=== PATIENT | female | born 1990 | race Caucasian/White ===

== ENCOUNTER 2016-06-21 08:35 | Outpatient (CLI) | payer BC ==
[~2016-06-21] VITALS: Ht 160 cm; Wt 56.4 kg
[~2016-06-21 08:35] MED LIST: CELEXA40 MG PO; NORCO 325 MG-51 TAB PO; PERCOCET 325 MG1 TA2 PO; SPRINTEC 35 MCG1 TAB PO
[2016-06-21 09:09] VITALS: BP 110/54; PULSE 75; TEMP 98.5
[2016-06-21] MEDS ORDERED: ZOLOFT 100MG100 MG PO (09:24)
[2016-06-21] MEDS ORDERED: PRENATAL PO (09:25)
[2016-06-21] MEDS ORDERED: FERROUS SULFATE65 MG PO (09:26)
[2016-06-21 09:47] VITALS: BP 103/58; PULSE 75
== END 2016-06-21 10:00 | disposition home or self-care (01) ==
LOC: LDRO 08:35
DX: O26.893 Other specified pregnancy related conditions, third trimester (principal); R11.0 Nausea; R10.84 Generalized abdominal pain; Z3A.36 36 weeks gestation of pregnancy

== ENCOUNTER 2016-07-07 05:02 | Inpatient (IN) | payer BC ==
[~2016-07-07] VITALS: Ht 160 cm; Wt 58.6 kg
[2016-07-07] VITALS (20 sets, daily range): BP systolic 103–130; BP diastolic 53–88; PULSE 62–118; TEMP 97.5–98.1
[~2016-07-07 05:02] MED LIST changes: +FERROUS SULFATE65 MG PO; +PRENATAL PO; +ZOLOFT 100MG100 MG PO
[2016-07-07] MEDS ORDERED: TYLENOL 500MG500 MG PO (05:35)
[2016-07-07] MEDS ORDERED: OMEGA-3 1000 MG1 CAP PO (05:36)
[2016-07-07 05:46] LABS: BASO % 0.3 % (0.0-2.0); EOS # 0.1 (0.0-0.7); EOS % 0.9 % (0-4.0); GRAN # 8.8 (1.4-6.5); GRAN % 74.3 % (42.2-75.2); HEMATOCRIT 38.2 % (37.0-47.0); MEAN CELL VOLUME 89 fl (80.0-100.0); MEAN CORPUSCULAR HEMOGLOBIN 30 pg (27.0-31.0); MEAN CORPUSCULAR HGB CONC 34 g/dl (33.0-37.0); MEAN PLATELET VOLUME 11.7 fl (7.4-10.4); MONO # 0.8 (0.1-0.6); MONO % 6.8 % (1.7-9.3); PLATELET COUNT 163 K/mm3 (130-400); REDCELL DISTRIBUTION WIDTH-CV 12.6 % (11.5-14.5); WHITE BLOOD COUNT 11.8 K/mm3 (4.8-10.8)
[2016-07-08 02:30] VITALS: BP 103/68; PULSE 91; TEMP 97.8
[2016-07-08 07:33] LABS: HEMOGLOBIN 12.2 g/dl (12.5-16.0)
[2016-07-08 07:43] VITALS: BP 103/57; PULSE 96; TEMP 97.7
[2016-07-08 08:07] LABS: HEMATOCRIT 36.2 % (37.0-47.0)
[2016-07-08 15:33] VITALS: BP 112/59; PULSE 85; TEMP 99.9
[2016-07-08 20:45] VITALS: BP 115/50; PULSE 91; TEMP 98
[2016-07-09] MEDS ORDERED: IBU600 MG PO (08:11)
[2016-07-09] MEDS ORDERED: PERCOCET 325 MG1 TA2 PO (08:11)
[2016-07-09 08:19] VITALS: BP 105/68; PULSE 99; TEMP 97.9
== END 2016-07-09 12:20 | disposition home or self-care (01) | DRG 775 ==
LOC: LDRO 05:02 → LDR 05:24 → OB 11:25
PROVIDERS: Obstetrics & Gynecology
PROC: 10E0XZZ Delivery of Products of Conception, External Approach (ICD-10-PCS; principal; 2016-07-07)
PROC: 0KQM0ZZ Repair Perineum Muscle, Open Approach (ICD-10-PCS; 2016-07-07)
DX: O99.824 Streptococcus B carrier state complicating childbirth (principal); O70.1 Second degree perineal laceration during delivery; O99.344 Other mental disorders complicating childbirth; F32.9 Major depressive disorder, single episode, unspecified; Z3A.39 39 weeks gestation of pregnancy; Z37.0 Single live birth
CPT/HCPCS: J2540; J2590; J2795; J7120

== ENCOUNTER 2018-01-16 11:33 | Emergency (ER) | payer BC ==
[~2018-01-16] VITALS: Ht 1602.7 cm; Wt 42.7 kg
[~2018-01-16 11:33] MED LIST changes: +IBU600 MG PO; +OMEGA-3 1000 MG1 CAP PO; +TYLENOL 500MG500 MG PO
[2018-01-16 11:37] VITALS: TEMP 98.7
[2018-01-16 12:30] VITALS: BP 95/51
[2018-01-16 13:00] LABS: COLLECTION METHOD CLEAN CATCH
[2018-01-16 13:17] LABS: MUCOUS Present /lpf; PH 7 (5-8); URINE APPEARANCE Clear; URINE BACTERIA Rare /hpf; URINE BILIRUBIN Negative (NEGATIVE); URINE BLOOD Negative (NEGATIVE); URINE COLOR Yellow; URINE GLUCOSE Negative (NEGATIVE); URINE KETONE 1+ (NEGATIVE); URINE LEUKOCYTE ESTERASE Trace (NEGATIVE); URINE NITRATE Negative (NEGATIVE); URINE PROTEIN(semi-quant) Negative (NEGATIVE); URINE UROBILINOGEN Negative (NEGATIVE)
[2018-01-16 14:30] VITALS: PULSE 65
== END 2018-01-16 14:30 | disposition home or self-care (01) ==
LOC: COL.ER 11:33
PROVIDERS: Emergency Medicine
DX: O21.9 Vomiting of pregnancy, unspecified (principal); Z3A.10 10 weeks gestation of pregnancy
CPT/HCPCS: J2405; J7030

== ENCOUNTER 2018-08-09 17:55 | Inpatient (IN) | payer MEDICAID ==
[~2018-08-09] VITALS: Ht 160 cm; Wt 56.8 kg
[2018-08-09] VITALS (17 sets, daily range): BP systolic 101–151; BP diastolic 52–74; PULSE 70–108; TEMP 98–98.1
[~2018-08-09 17:55] MED LIST changes: +CEPHALEXIN500 M1 PO; +PHENERGAN 25 TA25 MG PO; +PHENERGAN25 MG RC
--- NOTE | 2018-08-09 18:00 | NUR ---
Pt arrives on unit ambulatory with spouse. States regular contractions that increased at 1500. Bloody show noted. Reports GFM. Denies LOF. Changed into clean gown. EFM and toco applied. VSS. SVE per this RN / with BBJOSHUAI. Dr. Santos notified. Orders for admission.
[2018-08-09] MEDS ORDERED: VITAMIN C500 MG PO (18:39)
[2018-08-09] MEDS ORDERED: PROFE180 MG PO (18:40)
[2018-08-09 19:24] LABS: BASO % 0.3 % (0.0-2.0); EOS % 0.3 % (0-4.0); GRAN # 8.8 (1.4-6.5); HEMATOCRIT 37.2 % (37.0-47.0); HEMOGLOBIN 12.7 g/dl (12.5-16.0); LYMPH # 2.1 (1.2-3.4); MEAN CELL VOLUME 90 fl (80.0-100.0); MEAN CORPUSCULAR HEMOGLOBIN 31 pg (27.0-31.0); MEAN CORPUSCULAR HGB CONC 34 g/dl (33.0-37.0); MONO # 0.8 (0.1-0.6); MONO % 6.8 % (1.7-9.3); PLATELET COUNT 186 K/mm3 (130-400); RED BLOOD COUNT 4.14 M/mm3 (4.10-5.30); REDCELL DISTRIBUTION WIDTH-CV 12.8 % (11.5-14.5)
--- NOTE | 2018-08-09 21:00 | NUR ---
1814- Report taken from GUADALUPE Barrera. 1829- Assessment completed. Consents signed. IV started. Labs collected and sent. LR bolus infusing at this time. Questions encouraged and answered at this time. 1854- Patient states "I'll need an epidural in a little bit." ARIANA Yepez updated. 1924- RN to bedside. Patient is upset and crying with contractions. ARIANA Yepez notified and en route to unit for epidural placement. 1939- ARIANA Yepez at bedside for epidural placement. Patient repositioned to sitting upright. 1952- Test Dose. See Anesthesia Record. 1999- Patient repositioned to WL. Patient states "my contractions feel better" and is starting to feel relief with epidural. RN remains at bedside. 2006- SROM. Large amount of clear, odorless fluid noted. Patient begins to cry with SROM and feeling pressure. SVE Complete/0. at L&D desk and updated. 2009- to bedside for delivery. Nursery RN, Daly,GUADALUPE notified. Labor room set up for delivery. Patient begins to push spontaneously with contractions. Patient very uncomfortable and cries out in pain. 2013- Spontaneous vaginal delivery of viable baby boy. Cord clamped and cut. Cord blood obtained. NB care assumed by Daly,GUADALUPE. Patient continues to cry out in pain at this time. Lidocaine given. See eMAR. Fundal massage started by MD. 2nd degree tear repaired by . Pericare completed. 2018- Spontaneous delivery of placenta. Pitocin infusing at 333 ml/hr. MD continues to massage fundus. 2029- Motrin given per at this time. See eMAR. 2031- Straight Cath. Patient continues to cry out in pain at this time. Patient states the pain is only in her vagina/perineum area. 2099- Percocet given. See eMAR.
[2018-08-10] VITALS: BP 103/59; PULSE 81; TEMP 99
[2018-08-10 04:00] VITALS: BP 105/59; PULSE 85; TEMP 98
[2018-08-10 07:05] VITALS: BP 104/67; PULSE 84; TEMP 98.6
[2018-08-10 07:56] LABS: HEMOGLOBIN 11.8 g/dl (12.5-16.0)
[2018-08-10 07:57] LABS: HEMATOCRIT 34.6 % (37.0-47.0)
--- NOTE | 2018-08-10 10:11 | NUR ---
Initial visit; Mom thanked Applications Trainer for offering congratulations and God's blessings for the of her son. Applications Trainer thanked family for choosing [facility].
[2018-08-10 15:30] VITALS: BP 99/62; PULSE 74; TEMP 98
[2018-08-11 02:15] VITALS: BP 106/51; PULSE 69; TEMP 98.1
[2018-08-11] MEDS ORDERED: IBU600 MG PO (08:34)
[2018-08-11] MEDS ORDERED: PERCOCET 325 MG1 TA2 PO (08:35)
[2018-08-11 08:50] VITALS: BP 102/59; PULSE 81; TEMP 98.5
--- NOTE | 2018-08-11 12:15 | NUR ---
Discharge instructions given, pt vebalizes understanding. No further questions noted. Bands matched and hugs tag removed.
== END 2018-08-11 12:30 | disposition home or self-care (01) | DRG 807 ==
LOC: LDRO 17:55 → LDR 18:00 → OB 18:00
PROVIDERS: Obstetrics & Gynecology; ADMIT Obstetrics & Gynecology
PROC: 10E0XZZ Delivery of Products of Conception, External Approach (ICD-10-PCS; principal; 2018-08-09)
PROC: 0KQM0ZZ Repair Perineum Muscle, Open Approach (ICD-10-PCS; 2018-08-09)
DX: O99.344 Other mental disorders complicating childbirth (principal); Z37.0 Single live birth; F32.9 Major depressive disorder, single episode, unspecified; O70.1 Second degree perineal laceration during delivery; Z3A.39 39 weeks gestation of pregnancy
CPT/HCPCS: J2590; J7120

== ENCOUNTER 2019-03-05 15:11 | Emergency (ER) | payer SELFPAY ==
[~2019-03-05 15:11] MED LIST changes: +PROFE180 MG PO; +VITAMIN C500 MG PO
== END 2019-03-05 15:47 | disposition left against medical advice (07) ==
LOC: COL.ER 15:11
DX: G43.909 Migraine, unspecified, not intractable, without status migrainosus (principal); R07.89 Other chest pain; M25.512 Pain in left shoulder; M54.30 Sciatica, unspecified side; G40.909 Epilepsy, unspecified, not intractable, without status epilepticus; F31.9 Bipolar disorder, unspecified; F17.210 Nicotine dependence, cigarettes, uncomplicated; Z90.710 Acquired absence of both cervix and uterus